=== PATIENT | female | born 1995 | race Caucasian/White ===

== ENCOUNTER 2017-07-30 00:01 | Inpatient (IN) ==
[2017-07-30] MEDS ORDERED: LACTATED RINGERS 250 ML IV ONE (00:25)
[2017-07-30] MEDS ORDERED: LACTATED RINGERS 500 ML IV PRN (00:25)
[2017-07-30] MEDS ORDERED: MEPERIDINE 50 MG/1 ML VIAL IV PRN (00:25)
[2017-07-30] MEDS ORDERED: BUTORPHANOL 2 MG/ML VIAL IV PRN (00:25)
[2017-07-30] MEDS ORDERED: ONDANSETRON 4 MG/2 ML VIAL IV PRN (00:25)
[2017-07-30] MEDS ORDERED: CITRIC ACID/SODIUM CITRATE 30 ML UDCUP PO ONE (00:28)
[2017-07-30] MEDS ORDERED: FAMOTIDINE 20 MG/2 ML VIAL IV ONE (00:28)
[2017-07-30] MEDS ORDERED: fentaNYL 2 MCG/ROPIV 0.2% EPID 150 ML EPIDURAL SCH (00:28)
[2017-07-30] MEDS: LACTATED RINGERS 1,000 ML IV SCH ×2 (00:38→01:12)
[2017-07-30] MEDS ORDERED: ePHEDrine 50 MG/ML AMP ONE (00:47)
[2017-07-30 00:50] LABS: Basophils % 0.2 % (0.0-0.8); Eosinophils # 0.1 10*3/uL (0.0-0.87); Eosinophils % 0.5 % (0.00-10.9); Hematocrit 34.6 VOL% (35.7-47.0); Hemoglobin 11.8 GM/DL (12.0-16.0); Immature Granulocytes % 0.5 %; Immature Granulocytes Absolute 0.07 #; Mean Corpuscular HGB Conc 34.1 GM/DL (32-36); Mean Corpuscular Hemoglobin 31 PG (27-34); Mean Corpuscular Volume 89.6 FL (87-102); Mean Platelet Volume 11.3 FL (9.6-12.0); Monocytes # 0.8 10*3/uL (0.11-0.8); Monocytes % 5.2 % (1.7-12.7); Neutrophils # 11.5 10*3/uL (1.4-7.4); Neutrophils % 79.6 % (38.7-73.9); Platelet Count 233 T/CUMM (130-400); Red Blood Count 3.86 MC/CUMM (3.8-5.5); Red Cell Distribution Width 13.9 % (9.3-17.3); White Blood Count 14.5 T/CUMM (4-12)
[2017-07-30 01:16] LABS: Alanine Aminotransferase 19 U/L (13-56); Albumin 2.9 G/DL (3.4-5.0); Alkaline Phosphatase 159 U/L (45-117); Aspartate Amino Transferase 17 U/L (0-37); Bilirubin,Total < 0.39 MG/DL (0.2-1.0); Blood Urea Nitrogen 17 MG/DL (7-18); Glucose 82 MG/DL (74-106); Osmolality,Calculated 273.8 MOS/KG (273-304); Sodium 137 MMOL/L (136-145); Total Protein 6.8 G/DL (6.4-8.3)
[2017-07-30] MEDS ORDERED: OXYTOCIN/LR 20 UNIT/1,000 ML BAG IV ONE (01:19)
[2017-07-30] MEDS ORDERED: LIDOCAINE 1% 50 ML VIAL ONE (01:21)
--- NOTE | 2017-07-30 02:32 | OB/GYN History & Physical ---
History of Present Illness Chief complaint: In active labor. History of present illness: Ms. Starr is a 22 year old female who is a primigravida who presents to the labor department with complaints of painful uterine contractions. The patient was 6 cm dilated 90% effaced upon admission. The risk and benefits were thoroughly discussed with this patient significant other plan of care was discussed with Dr. Ulrich, all parties were in agreement with plan of care. The patient received her care at the [facility] and she received routine care, her course was uneventful. labs: She is a positive, rubella is nonimmune, R, serologies nonreactive, hepatitis B negative, HIV negative, and GBS culture negative. Review of systems is negative with exception of above. Home Medications Medication Instructions Recorded Confirmed Type Ferrous Sulfate 325 mg PO DAILY 07/11/17 07/30/17 History Multivitamin () [ 1 tablet PO DAILY 07/11/17 07/30/17 History Vitamin] Allergies Allergy/AdvReac Type Severity Reaction Status Date / Time No Known Allergies Allergy Verified 07/11/17 17:46 12 point system: reviewed and no additional remarkable complaints except as stated Medical,Surgical,& Family Hx - Medical History Medical History: noncontributory Reproductive: No history of: Ectopic , Complication - Surgical History Surgical History: noncontributory Reproductive Surgeries: Patient denies;: Section - Family History Family History: Reports;: Family Diabetes (MGM, PGF), Family Heart Disease (PGF) , Family Hypertension (PGF), Family Stroke (MGM) Denies;: Family Anesthesia Reaction, Family Cancer, Family Hematology, Family Psychiatric Problems, Additional Family History - Social History Smoking Status: Never smoker Frequency of Alcohol Use: None Type of Drug Use: None Marital Status: Single Lives With:: Parent Functional capacity: independent ambulation 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 General appearance: mild distress - Antepartum / Post Antepartum Exam Cervix - Dilatation: 6 cm upon admission Effacement: 90% Station: -2 Rupture: Intact Presentation: Vertex Heart Rate: 140 Breast: bilateral: normal Abdomen obstetrics: Present: bowel sounds normal Vagina: Present: normal moisture, discharge (Bloody show) Uterus exam: Present: enlarged Anus/Rectum: Present: normal perianal skin - Respiratory Respiratory exam: Present: clear to auscultation bilaterally - Cardiovascular Cardiovascular exam: Present: regular rate and rhythm - GI/Abdominal GI/Abdominal exam: Present: normal bowel sounds - Extremities Exam Extremities exam: Present: normal inspection - Neurological Exam Neurological exam: Present: alert, oriented X3 - Psychiatric Psychiatric exam: Present: normal affect, normal mood - Skin Skin exam: Present: normal color, warm Assessment and Plan (1) 39 weeks gestation of Status: Acute Assessment and plan: Admit IV fluids IV Pitocin per protocol if indicated Artificial rupture membranes when appropriate Internal monitors if indicated Epidural anesthesia if desired Anticipate Current Visit: Yes (2) Active labor at term Status: Acute Assessment and plan: Same as above Current Visit: Yes Results - Labs CBC & BMP: 07/30/17 00:38 07/30/17 00:38
--- NOTE | 2017-07-30 02:39 | Event Note ---
HPI: The patient presented to the labor department in active labor. The risk and benefits were thoroughly discussed with the patient and significant other, plan of care was discussed with Dr. Ulrich and all parties were in agreement plan. Stage I: The patient was admitted she received IV fluids. She progressed in labor rapidly with a CAT 1 tracing. She received IV pain meds for pain control. The patient requested an epidural however by the time the anesthesia arrived to the department the patient was completely dilated and desiring to push. Stage II: The patient was complete and complained of pressure and strong desire to push. She pushed for approximately 20 minutes after which time the infant's head was delivered, the mouth nose suctioned on the perineum. The remainder the was delivered at 203 a viable female was noted. Apgars were 9 at 1 minute and 9 at 5 minutes. weight was 6 pounds and 9 ounces abdomen for skin to skin bonding. Stage III: A spontaneous delivery of a Sotom[place]or placenta with a three-vessel cord noted. The placenta was further examined appeared to be grossly intact. The vagina cervix was inspected with a first-degree perineal laceration noted which was repaired. 1% lidocaine was utilized to admit the size of the area. The laceration was repaired in the usual fashion. Estimated blood loss was approximately 150 cc. At the time of dictation mother and baby both in stable condition.
[2017-07-30] MEDS ORDERED: ACETAMINOPHEN/CODEINE 300-30 MG TABLET PO PRN (02:41)
[2017-07-30] MEDS ORDERED: BISACODYL 10 MG SUPP RECTAL PRN (03:17)
[2017-07-30] MEDS ORDERED: RHO(D) IMMUNE GLOBULIN 300 MCG SYRINGE IM ONE (03:17)
[2017-07-30] MEDS ORDERED: BENZOCAINE 20%/MENTHOL 0.5% SPRAY 56 GM CAN TOP PRN (03:17)
[2017-07-30] MEDS ORDERED: oxyCODONE/ACETAMINOPHEN 5-325 MG TABLET PO PRN (03:17)
[2017-07-30] MEDS ORDERED: LANOLIN 50% CREAM 0.3 OZ TUBE TOP PRN (03:17)
[2017-07-30] MEDS ORDERED: WITCH HAZEL PADS 100/JAR TOP PRN (03:17)
[2017-07-30] MEDS ORDERED: MEASLES/MUMPS/RUBELLA VACCINE 0.5 ML VIAL SUBCUT ONE (03:17)
[2017-07-30] MEDS ORDERED: HYDROCORTISONE 2.5% RECTAL CREAM 30 GM TUBE TOP PRN (03:17)
[2017-07-30] MEDS ORDERED: ACETAMINOPHEN 325 MG TABLET PO PRN (03:17)
[2017-07-30] MEDS ORDERED: DIPH/TET/ACEL PERT BOOSTER VACCINE 0.5 ML VIAL IM ONE (03:17)
[2017-07-30 03:31] LABS: Cord Venous Blood HCO3 17.6 MMOL/L; Cord Venous Blood PCO2 40.7 MMHG; Cord Venous Blood PO2 31.5
[2017-07-30] MEDS: IBUPROFEN 800 MG TABLET PO PRN ×2 (04:30→17:23)
[2017-07-30] MEDS: DOCUSATE SODIUM 100 MG CAPSULE PO SCH ×2 (08:51→21:08)
--- NOTE | 2017-07-30 10:38 | OB/GYN Progress Note ---
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 Bonding well with infant. Exam COVER MACHINE OPERATOR - Constitutional Vitals: Vital Signs Temp Pulse Resp BP Pulse Ox 07/30/17 07:10 97.1 F L 80 18 122/68 98 07/30/17 06:49 20 07/30/17 06:20 70 20 124/66 99 07/30/17 05:20 72 20 128/72 100 07/30/17 04:20 97 F L 91 H 18 117/62 99 07/30/17 03:46 71 18 129/82 100 07/30/17 03:20 71 18 129/82 General appearance: no acute distress - Antepartum / Post Post Exam Breast: bilateral: normal Abdomen obstetrics: Present: bowel sounds normal Vulva: bilateral: normal Vagina: Present: normal moisture, discharge (Light lochia rubra) Uterus exam: Present: enlarged (Fundus firm and midline) Anus/Rectum: Present: normal perianal skin - Respiratory Respiratory exam: Present: clear to auscultation bilaterally - Cardiovascular Cardiovascular exam: Present: regular rate and rhythm - GI/Abdominal GI/Abdominal exam: Present: normal bowel sounds, soft - Extremities Exam Extremities exam: Present: normal inspection - Neurological Exam Neurological exam: Present: alert, oriented X3 - Psychiatric Psychiatric exam: Present: normal affect, normal mood - Skin Skin exam: Present: normal color, warm Results - Labs CBC & BMP: 07/30/17 00:38 07/30/17 00:38
[2017-07-30] MEDS: oxyCODONE/ACETAMINOPHEN 5-325 MG TABLET PO PRN (17:25)
[2017-07-31 06:24] LABS: Basophils % 0.2 % (0.0-0.8); Eosinophils # 0.2 10*3/uL (0.0-0.87); Eosinophils % 1.4 % (0.00-10.9); Hematocrit 30.9 VOL% (35.7-47.0); Hemoglobin 10.5 GM/DL (12.0-16.0); Immature Granulocytes % 0.4 %; Immature Granulocytes Absolute 0.05 #; Lymphocytes # 2.7 10*3/uL (1.4-4.0); Lymphocytes % 23.9 % (21.3-54.2); Mean Corpuscular Hemoglobin 30 PG (27-34); Mean Corpuscular Volume 88.8 FL (87-102); Mean Platelet Volume 11.4 FL (9.6-12.0); Monocytes # 0.7 10*3/uL (0.11-0.8); Monocytes % 6.3 % (1.7-12.7); Neutrophils # 7.8 10*3/uL (1.4-7.4); Neutrophils % 67.8 % (38.7-73.9); Platelet Count 192 T/CUMM (130-400); Red Blood Count 3.48 MC/CUMM (3.8-5.5); Red Cell Distribution Width 14.2 % (9.3-17.3); White Blood Count 11.4 T/CUMM (4-12)
[2017-07-31] MEDS: oxyCODONE/ACETAMINOPHEN 5-325 MG TABLET PO PRN ×2 (08:09→19:35)
[2017-07-31] MEDS: DOCUSATE SODIUM 100 MG CAPSULE PO SCH ×2 (08:11→20:39)
--- NOTE | 2017-07-31 11:06 | OB/GYN Progress Note ---
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 Bonding well with infant Exam TECHNICAL SOLUTIONS DIRECTOR - Constitutional Vitals: Vital Signs Temp Pulse Resp BP Pulse Ox 07/31/17 10:00 20 07/31/17 09:00 20 07/31/17 08:00 97.4 F L 71 18 129/76 99 07/31/17 06:32 18 07/31/17 06:00 18 07/31/17 04:00 97.5 F L 75 18 121/63 99 07/31/17 02:00 18 07/31/17 00:00 97.3 F L 60 18 123/64 99 07/30/17 19:32 97.2 F L 73 18 103/44 99 07/30/17 15:00 97.9 F 73 20 118/65 95 07/30/17 11:08 98 F 64 20 132/70 97 General appearance: no acute distress - Antepartum / Post Post Exam Breast: bilateral: normal Abdomen obstetrics: Present: bowel sounds normal Vagina: Present: discharge (Light lochia rubra) Uterus exam: Present: enlarged (Fundus firm and midline) Anus/Rectum: Present: normal perianal skin - Gyencological / Post Surgical Post Surgical Exam Extremities TECHNICAL SOLUTIONS DIRECTOR: Present: normal Abdomen obstetrics progress note: Present: normal appearance, soft - Respiratory Respiratory exam: Present: clear to auscultation bilaterally - Cardiovascular Cardiovascular exam: Present: regular rate and rhythm - GI/Abdominal GI/Abdominal exam: Present: normal bowel sounds, soft - Extremities Exam Extremities exam: Present: normal inspection - Neurological Exam Neurological exam: Present: alert, oriented X3 - Psychiatric Psychiatric exam: Present: normal affect, normal mood - Skin Skin exam: Present: normal color, warm Results - Labs CBC & BMP: 07/31/17 06:01 07/30/17 00:38
--- NOTE | 2017-07-31 11:10 | Discharge Summary ---
Hospital Course - Hospital Course Hospital Course: Ms. Duarte presented to the labor department in active labor. She subsequently delivered a viable with no complications. She has followed a normal course and she has done well. Her bleeding is minimal with no odor. Her fundus is firm and midline. She is bonding well with her . Her vital signs and lab values are stable. Contraception options has been discussed with this patient she is unsure of method at this time. She will be discharged home with prescriptions for pain and a follow-up appointment in our office. Diagnosis - Discharge Diagnosis (1) 39 weeks gestation of Status: Acute (2) Active labor at term Status: Acute (3) Vaginal delivery Status: Acute Specialty Discharge - Follow Up or Referrals Follow up with: Germania Ulrich MD [Primary Care Provider] - 09/14/17 9:45 am Discharge Plan - Discharge Data Disposition: Disch To Home/Self Care Condition at Discharge: Stable Discharge Diet: advance to your usual diet, regular diet Activity: resume usual activities as tolerated Hygiene: no restrictions Weight Bearing at Discharge: weight bear as tolerated Driving: no restrictions Contact your physician if you experience:: fever over 101, pain uncontrolled by pain medications - Discharge Medications New Ibuprofen Tab [Motrin Tab] 800 mg PO Q6H PRN #30 tablet PRN Reason: Pain Moderate (4-7) Acetamin/Codeine 300-30 Tab [Tylenol/Codeine #3] 2 tablet PO Q4H PRN #30 tablet PRN Reason: Pain Mild (1-3) No Action Multivitamin () [ Vitamin] 1 tablet PO DAILY Ferrous Sulfate 325 mg PO DAILY - Follow Up or Referral Follow Up: Germania Ulrich MD [Primary Care Provider] - 09/14/17 9:45 am - Forms/Instructions Instructions: Depression (GEN), Perineal Care (DC), Vaginal Delivery (DC), Bleeding (DC) Exam - Constitutional Vitals: Period Temp Pulse Resp BP Sys/[place]s Pulse Ox Last 24 Hr 97.2 F-97.9 F 60-75 18-20 103-129/44-76 95-99 General appearance: no acute distress - Head Head exam: Present: normal inspection - Respiratory Respiratory exam: Present: clear to auscultation bilaterally - Cardiovascular Cardiovascular exam: Present: regular rate and rhythm - GI/Abdominal GI/Abdominal exam: Present: normal bowel sounds, soft - Extremities Exam Extremities exam: Present: normal inspection - Neurological Exam Neurological exam: Present: alert, oriented X3 - Psychiatric Psychiatric exam: Present: normal affect, normal mood - Skin Skin exam: Present: normal color, warm Discharge Results Labs on day of discharge: Labs from last 24 hours 07/31/17 06:01 WBC 11.4 RBC 3.48 L Hgb 10.5 L Hct 30.9 L MCV 88.8 MCH 30 MCHC 34.0 RDW 14.2 Plt Count 192 MPV 11.4 Neut % (Auto) 67.8 Lymph % (Auto) 23.9 [place] % (Auto) 6.3 Eos % (Auto) 1.4 Baso % (Auto) 0.2 Neut # (Auto) 7.8 H Lymph # (Auto) 2.7 [place] # (Auto) 0.7 Eos # (Auto) 0.2 Baso # (Auto) 0.0 Immature Gran % 0.4 Nucleated RBC % 0.0 Immature Gran # 0.05 Nucleated RBCs # 0.00 Immature Plt Fraction 0.0 DS: Provider Date of admission: 07/30/17 00:15 Primary care physician: Germania Ulrich MD Attending physician on admission: Germania Ulrich MD Consults: 07/30/17 00:25 Consult to Anesthesiology [CONS] Routine Consulting Provider: Reason for Anesthesiology: Epidural Consult Comment: Epidural for pain managment 07/30/17 03:17 Consult to Nuclear Technician [CONS] Routine Consult Nuclear Technician: Breast Feeding Discharging clinician: Maggie Solis CNM Expected date of discharge: 08/01/17
[2017-07-31] MEDS: IBUPROFEN 800 MG TABLET PO PRN ×2 (12:31→19:34)
[2017-08-01] MEDS: IBUPROFEN 800 MG TABLET PO PRN (02:06)
[2017-08-01] MEDS: DOCUSATE SODIUM 100 MG CAPSULE PO SCH (08:35)
[2017-08-01 09:02] VITALS: BP 150/72
[2017-08-01 09:26] LABS: Basophils % 0.3 % (0.0-0.8); Eosinophils # 0.2 10*3/uL (0.0-0.87); Eosinophils % 2.5 % (0.00-10.9); Hematocrit 33.7 VOL% (35.7-47.0); Hemoglobin 11.3 GM/DL (12.0-16.0); Immature Granulocytes % 0.3 %; Immature Granulocytes Absolute 0.03 #; Lymphocytes # 2.5 10*3/uL (1.4-4.0); Lymphocytes % 27.4 % (21.3-54.2); Mean Corpuscular HGB Conc 33.5 GM/DL (32-36); Mean Corpuscular Hemoglobin 30 PG (27-34); Mean Corpuscular Volume 90.6 FL (87-102); Mean Platelet Volume 10.5 FL (9.6-12.0); Monocytes # 0.6 10*3/uL (0.11-0.8); Neutrophils # 5.9 10*3/uL (1.4-7.4); Neutrophils % 63.5 % (38.7-73.9); Platelet Count 202 T/CUMM (130-400); Red Blood Count 3.72 MC/CUMM (3.8-5.5); White Blood Count 9.2 T/CUMM (4-12)
[2017-08-01 09:58] LABS: Alanine Aminotransferase 24 U/L (13-56); Albumin 2.6 G/DL (3.4-5.0); Alkaline Phosphatase 140 U/L (45-117); Aspartate Amino Transferase 28 U/L (0-37); Bilirubin,Total < 0.39 MG/DL (0.2-1.0); Blood Urea Nitrogen 17 MG/DL (7-18); Calcium 8.7 MG/DL (8.5-10.1); Glucose 74 MG/DL (74-106); Osmolality,Calculated 277.5 MOS/KG (273-304); Potassium 4.4 MMOL/L (3.5-5.1); Sodium 139 MMOL/L (136-145); Total Protein 5.7 G/DL (6.4-8.3); Uric Acid 5.2 MG/DL (2.6-6.0)
== END 2017-08-01 13:00 | disposition home or self-care (01) | DRG 775 ==
LOC: N.LDOUT 00:01 → N.LD 00:05 → N.OB 03:16
PROVIDERS: ADMIT Obstetrics & Gynecology; ATTEND Obstetrics & Gynecology